=== PATIENT | male | born 2005 | race Two or more races ===

== ENCOUNTER 2024-12-06 09:07 | Emergency (ER) | payer MEDICAID, OTHER ==
[~2024-12-06] VITALS: Ht 185.4 cm; Wt 90.0 kg
[2024-12-06 09:20] VITALS: BP 150/93; PULSE 80; RESP 20; TEMP 98.3; O2SAT 98
--- NOTE | 2024-12-06 09:37 | ED.PDOC ---
Psychiatric HPI Comments 19 y/o M, RHODA, presents to the ED for CC of mental health. EMS reports, patient is coming from crisis center where he c/o suicidal ideation with intent. EMS states, patient relayed that "I want to lay down on the street and get ran over". Upon arrival to the ED, patient is A&Ox4 and denies suicidal ideation stating,"i actually just want to go home with my mom". Patient denies suicidal ideation, homicidal ideation, visual hallucinations, or auditory hallucinations. No other symptoms or modifying factors present at this time. Chief Complaint: Mental Health Time Seen by MD: 09:30 Reviewed Notes: Nurses Notes, Aluminum Boat Inspector Notes, Medications, Allergies Information Source: Patient, Emergency Med Personnel Mode of Arrival: EMS Severity: Able to Care for Self Severity of Pain: None Severity of Mental Status: Mild Severity of Symptoms: Mild Timing: Minutes Duration: Since onset Prehospital treatment: None Presents with: None Ingestion: None Circumstance: None Current substance abuse: None History of: None Quality: None Location: None Location of pain or injury: None Associated signs and symptoms: None Past Medical History PAST MEDICAL HISTORY: Denies Surgical History: Denies all surgeries Family History Family History: Unknown Social History Smoker: Non-Smoker Alcohol: Denies ETOH Use Drugs: Denies Drug Use Lives In: Home Constitutional: denies: chills, diaphoresis, fatigue, fever, malaise, sweats, weakness, others EENTM: denies: blurred vision, double vision, ear bleeding, ear discharge, ear drainage, ear pain, ear ringing, eye pain, eye redness, hearing loss, mouth pain, mouth swelling, nasal discharge, nose bleeding, nose congestion, nose pain, photophobia, tearing, throat pain, throat swelling, voice changes, others Respiratory: denies: cough, hemoptysis, orthopnea, SOB at rest, shortness of breath, SOB with excertion, stridor, wheezing, others Cardiovascular: denies: chest pain, dizzy spells, diaphoresis, Dyspnea on exertion, edema, irregular heart beat, left arm pain, lightheadedness, palpitations, PND, syncope, others Gastrointestinal: denies: abdomen distended, abdominal pain, blood streaked bowels, constipated, diarrhea, dysphagia, difficulty swallowing, hematemesis, melena, nausea, poor appetite, poor fluid intake, rectal bleeding, rectal pain, vomiting, others Genitourinary: denies: burning, dysuria, flank pain, frequency, hematuria, incontinence, penile discharge, penile sore, pain, testicle pain, testicle swelling, urgency, others Neurological: denies: dizziness, fainting, headache, left sided numbness, left sided weakness, numbness, paresthesia, pre-existing deficit, right sided numbness, right sided weakness, seizure, speech problems, tingling, tremors, weakness, others Musculoskeletal: denies: back pain, gout, joint pain, joint swelling, muscle pain, muscle stiffness, neck pain, others Integumetry: denies: bruises, change in color, change in hair/nails, dryness, laceration, lesions, lumps, rash, wounds, others Allergic/Immunocompromised: denies: Difficulty Healing, Frequent Infections, Hives, Itching, others Hematologic/Lymphatic: denies: anemia, blood clots, easy bleeding, easy bruising, swollen glands, others Endocrine: denies: excessive hunger, excessive sweating, excessive thirst, excessive urination, flushing, intolerance to cold, intolerance to heat, unexplained weight gain, unexplained weight loss, others Psychiatric: denies: anxiety, bipolar disorder, depression, hopeless, panic disorder, schizophrenia, sleepless, suicidal, others All Other Systems: Reviewed and Negative Physical Exam General Appearance: Moderate Distress HEENT: Normal ENT Inspection, Pharynx Normal, TMs Normal Neck: Full Range of Motion, Non-Tender, Normal, Normal Inspection Respiratory: Chest Non-Tender, Lungs Clear, No Accessory Muscle Use, No Respiratory Distress, Normal Breath Sounds Cardiovascular: No Edema, No JVD, No Murmur, No Gallop, Normal Peripheral Pulses, Regular Rate/Rhythm Breast Exam: Deferred Gastrointestinal: No Organomegaly, Non Tender, No Pulsatile Mass, Normal Bowel Sounds, Soft Genitalia: Deferred Pelvic: Deferred Rectal: Deferred Extremities: No calf tenderness, Normal capillary refill, Normal inspection, Normal range of motion, Non-tender, No pedal edema Musculoskeletal : Apperance: Normal Neurologic: Alert, bradder II-XII nml as Tested, No Motor Deficits, Normal Affect, Normal Mood, No Sensory Deficits Cerebellar Function: Normal Reflexes: Normal Skin: Dry, Normal Color, Warm Peripheral Pulses: 3+ Radial (R), 3+ Radial (L) Lymphatic: No Adenopathy Was a procedure done? Was a procedure done?: No Psych Differential Dx Psych. Differential Dx: No symptoms Reported X-Ray, Labs, Meds, VS Vital Signs Date Time Temp Pulse Resp B/P (MAP) Pulse Ox O2 Delivery O2 Flow Rate FiO2 12/06/24 09:20 98.3 80 20 150/93 (112) 98 98.3 Patient alert Vitals stable. Denies suicidal or homicidal ideation. Saturation pristine on room air. No sign of any distress. Insists on going home. He is alert oriented. Explained to the patient. Was told to follow up with his primary care physician. Was told to come back if there is any problem. Time of 1ST Reevaluation: 10:00 Reevaluation 1ST: Improved Patient Education/Counseling: Diagnosis, Treatment Family Education/Counseling: No Family Present Departure 1 Departure Time of Disposition: 12:13 Impression: Primary Impression: Anxiety Disposition: 01 HOME / SELF CARE / HOMELESS Condition: Good Discharged With: Self Critical Care Note Critical Care Time?: No Stability Stability form required: No Heart Score Heart Score: Heart Score Response (Comments) Value History N/A 0 EKG N/A 0 Age N/A 0 Risk Factors N/A 0 Troponin N/A 0 Total 0 I personally scribed for IRASEMA SMITH MD ([email or web address]) on 12/06/24 at 09:37. Electronically submitted by Mary Gibbons ([email or web address]). IRASEMA SMITH MD December 06, 2024 09:37
== END 2024-12-06 12:12 | disposition home or self-care (01) ==
LOC: ER 09:07 → EDBD 09:07 → ER 12:12
DX: F41.9 Anxiety disorder, unspecified (principal)

== ENCOUNTER 2025-04-15 00:42 | Emergency (ER) | payer MEDICAID ==
[~2025-04-15] VITALS: Ht 180.3 cm; Wt 111.5 kg
[2025-04-15 00:43] VITALS: BP 139/97; PULSE 77; RESP 16; O2SAT 100
--- NOTE | 2025-04-15 01:23 | ED.PDOC ---
History of Present Illness HPI Comments 20 y/o M presents with c/c of suicidal ideations. Onset of thoughts, this evening. No endorsed current plan or recent attempts to end his life. Denial of any auditory or visual hallucinations or further acute symptoms. Chief Complaint: Suicidal Time Seen by MD: 01:00 Primary Care Provider: UNKOWN Reviewed Notes: Nurses Notes, Medications, Allergies Allergies: Coded Allergies: NO KNOWN ALLERGIES (Unverified , 12/06/24) Information Source: Patient Mode of Arrival: Ambulatory Severity: Moderate Timing: Hours Duration: Since onset Prehospital treatment: None Past Medical History PAST MEDICAL HISTORY: Denies Surgical History: Denies all surgeries Family History Family History: Unknown Social History Smoker: Non-Smoker Alcohol: Denies ETOH Use Drugs: Denies Drug Use Lives In: Home All Other Systems: Reviewed and Negative (as per HPI) Physical Exam General Appearance: Moderate Distress HEENT: Normal ENT Inspection, Pharynx Normal, TMs Normal Neck: Full Range of Motion, Non-Tender, Normal, Normal Inspection Respiratory: Chest Non-Tender, Lungs Clear, No Accessory Muscle Use, No Respiratory Distress, Normal Breath Sounds Cardiovascular: No Edema, No JVD, No Murmur, No Gallop, Normal Peripheral Pulses, Regular Rate/Rhythm Breast Exam: Deferred Gastrointestinal: No Organomegaly, Non Tender, No Pulsatile Mass, Normal Bowel Sounds, Soft Genitalia: Deferred Pelvic: Deferred Rectal: Deferred Extremities: No calf tenderness, Normal capillary refill, Normal inspection, Normal range of motion, Non-tender, No pedal edema Musculoskeletal : Apperance: Normal Neurologic: Alert, garnett machine operator II-XII nml as Tested, No Motor Deficits, Normal Affect, Normal Mood, No Sensory Deficits Cerebellar Function: Normal Reflexes: Normal Skin: Dry, Normal Color, Warm Peripheral Pulses: 3+ Radial (R), 3+ Radial (L) Lymphatic: No Adenopathy Was a procedure done? Was a procedure done?: No Differential Dx Considerations may include: suicidal ideations, depression, hopelessness, among others X-Ray, Labs, Meds, VS Vital Signs Date Time Temp Pulse Resp B/P (MAP) Pulse Ox O2 Delivery O2 Flow Rate FiO2 04/15/25 00:43 97.7 77 16 139/97 100 97.7 Patient alert. Vitals stable. Has been seen here many times. Answering questions. Saturation pristine on room air. No sign of any injuries. Medically cleared. Psychiatric evaluation. Time of 1ST Reevaluation: 01:30 Reevaluation 1ST: Unchanged Patient Education/Counseling: Treatment, Need For Follow Up Family Education/Counseling: No Family Present SEPSIS Sepsis Screen Date sepsis recognized/suspect: Apr 15, 2025 Time Sepsis recognized/suspect: 004 Recent Procedure: No On Antibiotic Therapy: No Respiratory Rate >20: No Heart Rate >90: No Temp<36 C (96.8 F) or >38.3 C: No SBP <90 or MAP <65 mmHG: No New Acute Mental Status Change: No Is the patient on CPAP, BIPAP,: No Physician Orders Drug Screen (04/15/25 00:52) Vital Signs Date Time Temp Pulse Resp B/P (MAP) Pulse Ox O2 Delivery O2 Flow Rate FiO2 04/15/25 00:43 97.7 77 16 139/97 100 97.7 Departure 1 Departure Time of Disposition: :25 Impression: Primary Impression: Suicidal ideation Disposition: 30 STILL A PATIENT Condition: Good Critical Care Note Critical Care Time?: No Stability Stability form required: No Heart Score Heart Score: Heart Score Response (Comments) Value History N/A 0 EKG N/A 0 Age N/A 0 Risk Factors N/A 0 Troponin N/A 0 Total 0 I personally scribed for IRASEMA SMITH MD ([email or web address]) on 04/15/25 at 01:23. Electronically submitted by Antonio Nevarez ([email or web address]). IRASEMA SMITH MD Apr 15, 2025 01:23
--- NOTE | 2025-04-15 07:09 | DVHINCON2 ---
Date of Service if different f: Apr 15, 2025 Time of Service: 07:09 Consult Consult Note PSYCHIATRY ED NEW CONSULT HPI: 20 yo M pt with PPH of depression and ASD presents to ED BIB self for safety, psychiatric stabilization in setting of acute anxiety and passive SI. Psychiatry consulted for safety evaluation and recommendations in context of current presentation. Of note, pt with frequent ED admission for similar CC/presentation Per pt, reports feeling SI with no plan/intent earlier today because "i was feeling really anxious, overwhelmed, restless, and i cannot sleep at all" without specific trigger/stressor hence decided to come to ED for safety and s tabilization. Pt is no longer feeling anxious or suicidal and feels safe to be discharged back home. Of note, pt w/chronic baseline SI but usually without a plan/intent due to fear of actual /dying Currently denies depressed mood, hopelessness, helplessness, isolation, negative thoughts, loss of interest, or anhedonia. Denies anxiety/panic/OCD/PTSD symptoms presently. appetite/energy/conc relatively WNL. Adamantly denies SI/HI. Denies AVH/paranoia/catatonic/perceptual disturbances/personality changes. No overt manic, psychotic, major depressive, cognitive, dissociative phenomena, panic, or somatic symptoms noted. Appears future oriented/goal directed. Denies acute psychosocial stressors. Pt currently does not have psychiatrist/therapist out in community. Currently rx'd Hydroxyzine 50 mg qd prn anxiety, prior psych meds include Abilify WEBB, abilify, sertraline. Of note, pt does have hx of med noncompliance to scheduled PO meds Denies self medicating mood symptoms with ETOH, THC or IDU Never , no children, HS grad, unemployed, lives with parent/siblings, some support system noted. Unknown trauma hx. Unknown FH. No acute medical issues, NKDA Hx of several suicide attempts via OD prompting inpt psychiatric admission, none since 2023, also hx of SIB via cutting - last cut superficially several weeks ago, hx of multiple prior psych hospitalizations for SI, last admission several months ago. Currently denies SI/HI/AVH. Denies history of violence, unprovoked aggression, or assaultive behaviors. Denies inappropriate, illegal, or engaging in risky behaviors. Does not have access to firearms. No acute safety concerns noted MSE: General Appearance/Behavior: Alert and awake; appears stated age, overweight, fair grooming and hygiene; calm and cooperative, fair eye contact, no PMA/PMR Speech: coherent, rrr Thought Process: linear, logical, concrete Thought Content: Abnormal Thoughts and Perceptions: None Homicidality / Violent Thoughts: None Suicidality: adamantly denies SI Hallucinations: None Delusions: denies paranoia, persecutory, or grandiose delusions Obsessions /compulsions : None Judgment and Insight: marginally fair/questionable judgment with fair insight Mood & Affect: "better" with mood-congruent, somewhat restricted at baseline, appropriate Orientation: oriented to person, place, time Attention/Concentration: intact, follows conversation Memory: grossly intact Language: no unusual or inappropriate language Assessment: 20 yo M pt with PPH of depression and ASD presents to ED BIB [facility] for safety, psychiatric stabilization in setting of acute anxiety and passive SI. Of note, pt with frequent ED admission for similar CC/presentation as pt w/chronic baseline SI but usually without plan/intent Currently denies SI/HI/AVH. Acute anxiety symptoms have now gradually resolved while in ED. Linear and appears future oriented/ goal directed in thought Identifies several protective factors including a desire to live, family support, seeking employment, etc Presently, pt does not show any signs of immediate danger to self or others that would warrant a higher level of care. Thus, pt does not meet criteria for 5150 or involuntary inpatient psych admission as is not DTS, DTO or GD. No acute safety concerns noted. Acute suicide risk appears nonexistent to relatively low Pt currently does not have psychiatrist/therapist out in community due to long hx of no-shows and tx non-adherence Currently rx'd Hydroxyzine 50 mg qd prn anxiety, prior psych meds include Abilify WEBB, abilify, sertraline. Of note, pt does have hx of med noncompliance to scheduled PO meds Pt requests an increase in hydroxyzine dose for greater therapeutic value Primary Diagnosis: Anxiety disorder unspecified. ASD, hx Plan: Does not warrant involuntary inpatient psychiatric hospitalization or 5150 hold at this time No acute safety concerns Pt can be safely discharged back to current residence Recommend d/c pt on 14 day rx for Hydroxyzine 100 mg qd prn anxiety R/b discussed, informed consent provided by pt Supportive tx provided, discussed safety plan with pt Encouraged mindfulness techniques (reading, walking, meditation, journaling, exercise, deep breathing) during times of stress Pt to f/u with outpt MH providers upon establishing care Instructed pt to call [phone] or return to ED if mood symptoms worsen or new onset SI/HI upon discharge Pt verbalized understanding and is receptive to above tx plan This case was discussed with ED nurse/provider and all parties in agreement with above tx plan Moreno Hernández MD Plan discussed with: Patient MORENO HERNÁNDEZ MD Apr 15, 2025 07:09
[2025-04-15] MEDS ORDERED: HYDR-3682 PO (07:25)
[2025-04-15 08:28] VITALS: TEMP 97.7
== END 2025-04-15 09:04 | disposition home or self-care (01) ==
LOC: ER 00:42
DX: R45.851 Suicidal ideations (principal); Z79.899 Other long term (current) drug therapy